=== PATIENT | female | born 1990 | race American Indian/Alaskan Native ===

== ENCOUNTER 2018-11-26 05:37 | Inpatient (IN) | payer MEDICAID ==
[2018-11-26] MEDS: Lactated Ringers 1,000 ML IV SCH ×6 (06:30→23:00)
[2018-11-26] MEDS ORDERED: Sodium Chloride 0.9% 10 ML Syringe FLUSH PRN (06:42)
[2018-11-26] MEDS ORDERED: Tranexamic Acid 1,000 MG in Sodium Chloride 0.9% 100 ML IV PRN ×2 (06:42→08:43)
[2018-11-26] MEDS ORDERED: Citric Acid/Sodium Citrate Solution 30 ML Cup PO ONE (06:42)
[2018-11-26] MEDS ORDERED: Lactated Ringers 1,000 ML IV SCH (06:45)
[2018-11-26] MEDS ORDERED: ceFAZolin 2 GM in Premix Bag 1 BAG IV ONE (07:06)
[2018-11-26] MEDS ORDERED: Oxytocin/Normal Saline 60 UNIT/1,000 ML BAG ONE (07:15)
[2018-11-26] MEDS ORDERED: Oxytocin/Normal Saline 30 UNIT/500 ML BAG IV SCH (08:30)
[2018-11-26] MEDS ORDERED: Acetaminophen/oxyCODONE 325-5 MG Tab PO PRN (08:43)
[2018-11-26] MEDS ORDERED: diphenhydrAMINE 50 MG/ML SDV IVPUSH PRN (08:43)
[2018-11-26] MEDS ORDERED: Methylergonovine 0.2 MG/1 ML Amp IM PRN (08:43)
[2018-11-26] MEDS ORDERED: ePHEDrine 50 MG/ML SDV IVPUSH PRN (08:43)
[2018-11-26] MEDS ORDERED: Misoprostol 400 MCG (4 X 100 MCG TAB) RECTAL PRN (08:43)
[2018-11-26] MEDS ORDERED: Naloxone 2 MG/2 ML Syringe IVPUSH PRN (08:43)
[2018-11-26] MEDS ORDERED: Carboprost Tromethamine 250 MCG/1 ML Amp IM ONE (08:43)
[2018-11-26] MEDS ORDERED: Ondansetron 4 MG/2 ML SDV IV PRN (08:43)
[2018-11-26] MEDS ORDERED: Acetaminophen 325 MG Tab PO PRN (08:43)
--- NOTE | 2018-11-26 11:24 | OR ---
DATE: 11/26/2018 PREOPERATIVE DIAGNOSES: 1. Intrauterine at 39 and 2/7 weeks confirmed by 9-week ultrasound. 2. History of 2.5-minute shoulder dystocia with previous . 3. History of clavicle fracture with other delivery. 4. Request for primary low transverse section due to the above. 5. Impaired glucose tolerance. 6. History of loop electrosurgical excision procedure. 7. History of herpes, on prophylaxis. 8. 3, P2-0-0-2. POSTOPERATIVE DIAGNOSES: 1. Intrauterine at 39 and 2/7 weeks confirmed by 9-week ultrasound, delivered. 2. History of 2.5-minute shoulder dystocia with previous . 3. History of clavicle fracture with other delivery. 4. Request for primary low transverse section due to the above. 5. Impaired glucose tolerance. 6. History of loop electrosurgical excision procedure. 7. History of herpes on prophylaxis. 8. 3, P2-0-0-2. PROCEDURES PERFORMED: NST followed by primary low transverse with 2- layer uterine closure. GEODETIC SURVEYOR TECHNOLOGIST: 1. Carmina Bains MD. 2. Kobe Degroot, MS-III. 3. Radha Walton, PGY-III . ANESTHESIA: Spinal. ESTIMATED BLOOD LOSS: 700 mL. INTRAVENOUS FLUIDS: 1100 mL of lactated Ringer's and 250 mL of Pitocin. URINE OUTPUT: 60 mL and clear yellow. START: 8:12 UTERINE INCISION: 8:15 DELIVERY: 8:16 STOP: 8:33 FINDING: Male, scores 8 and 9, weight pending. DESCRIPTION OF PROCEDURE IN DETAIL: After proper consent was obtained, the patient was brought to the operating room where spinal anesthetic was administered. Castro was placed in preop under sterile conditions. Abdomen was prepped and draped in normal sterile fashion with the patient placed in supine position with left lateral tilt. A skin incision was then made over lower abdomen in transverse Pfannenstiel-type fashion. This was carried down the fascia and scored in midline. Subcutaneous tissue was raked laterally with Meadows retractor, and fascial incision was extended in lateral fashion using curved Price's. Vee clamps x2 used to grasp the superior aspect of the fascia, and rectus muscles were dissected from the fascia using sharp and blunt technique. In a similar fashion, Vee clamps x2 used to grasp the inferior portion of the incision, and rectus and pyramidalis muscles were dissected using sharp using blunt technique. Rectus muscles were then in midline with blunt technique. Abdominal cavity was entered in blunt technique. Incision was extended superiorly and inferiorly with blunt technique. Kobe O large retractor was then introduced and used. Vesicouterine peritoneum was identified and incised in transverse fashion with Metzenbaum scissors. Bladder flap was made digitally. A curvilinear incision was made on the lower uterine segment at 0812 hours. Uterus was entered sharply. Clear fluid returned. Uterine incision was then extended in transverse fashion using blunt technique. vertex was then delivered through the incision followed by rest of the infant with minimal difficulty. Mouth and nares were suctioned. Cord doubly clamped cut and was brought to team. Then, approximately 10 mL of cord blood was obtained for labs. Placenta was then delivered with gentle cord traction and fundal massage. Uterine cavity was cleared of all blood clots and debris with lap sponge. Cuevas clamps were used to grasp the uterine incision, and this was closed in a running, locked fashion, tied at lateral margins with 1-0 Vicryl. Second imbricating layer was then applied and tied at lateral margins with 1-0 Vicryl. First inspection of the uterine incision revealed hemostasis. Kobe O retractor was then removed, and paracolic gutters were then cleared of all blood clots or debris. Anterior cul-de-sac was then irrigated copiously, and all blood clots were removed. Second and final inspection of uterine incision and anterior cul-de-sac revealed hemostasis. Rectus muscles were then reapproximated in midline with [id number] stitch using 1-0 Vicryl. Subfascial tissue found to be hemostatic. Fascia was closed in a running fashion and tied at lateral margins with 0 looped PDS. Subcutaneous tissue was irrigated copiously. Hemostasis was reassured. Skin was reapproximated with medium ciera. Sterile Aquacel dressing was applied. Uterine fundus was firm and massaged at conclusion of the case -1 below the umbilicus. No immediate complications were noted. Sponge, lap, and needle counts were correct. The patient received 2 g of Ancef preoperatively, Pitocin per protocol, and will receive Toradol at the conclusion of case for pain control. Mother and infant are currently stable at the time of dictation. [facility] /[id number]
--- NOTE | 2018-11-26 11:33 | OBOUT ---
DATE: 11/26/2018 DATE AND TIME OF NST: Date: 11/26/2018. Time: 6:10 to 6:30. REASON FOR NST: 1. Intrauterine at 39 and 2/7 weeks confirmed with 9-week ultrasound. 2. History of 2.5-minute shoulder dystocia with previous delivery. 3. History of clavicle fracture with different delivery of with delivery. 4. Request for primary low transverse section. 5. Remote history of asthma. 6. History of herpes. 7. G3, P2-0-0-2. NST INTERPRETATION: During this time period, heart tone baseline is approximately 125 to 130 and there are at least two 15 x 15 beat per minute accelerations making this strip reactive. It is also noted to be reassuring. Tocometer reveals potential of 3 to 4 contractions, minimally felt by the patient. ASSESSMENT: 1. Nonstress test, reactive and reassuring. 2. Tocometer with contractions. PLAN: Please see admit history and physical done through [facility]. Records were called for, reviewed, and summarized through this as well and updated. Blood pressure today 121/75 and heart rate 89. The patient is afebrile. Otherwise, please see epic notes for further details. We will proceed to OR as soon as crew is ready and available. [facility] /[id number]
[2018-11-26] MEDS ORDERED: Oxytocin/Normal Saline 30 UNIT/500 ML BAG IV ONE (13:03)
[2018-11-26] MEDS ORDERED: Lactated Ringers 1,000 ML IV ONE (13:08)
[2018-11-26] MEDS ORDERED: Dexamethasone 4 MG/ML SDV IV ONE (13:08)
[2018-11-26] MEDS ORDERED: Ondansetron 4 MG/2 ML SDV IV ONE (13:08)
[2018-11-26] MEDS ORDERED: ePHEDrine 50 MG/ML SDV IV ONE (13:08)
[2018-11-26] MEDS ORDERED: Morphine PF 1 MG/ML Amp ONE (13:08)
[2018-11-26] MEDS: Docusate Sodium 100 MG Cap PO PRN ×2 (13:08→20:04)
[2018-11-26] MEDS ORDERED: Ketorolac 30 MG/ML SDV IVPUSH ONE (13:08)
[2018-11-26] MEDS: Prenatal Multivitamin with Calcium/Folic Acid/Iron Tab PO SCH (13:09)
[2018-11-26] MEDS: Simethicone 80 MG Tab.Chew PO SCH ×3 (13:09→20:04)
[2018-11-26] MEDS: Ketorolac 30 MG/ML SDV IVPUSH SCH ×2 (14:05→20:04)
[2018-11-27] MEDS: Ketorolac 30 MG/ML SDV IVPUSH SCH (02:03)
--- NOTE | 2018-11-27 07:57 | PCM.PNPP ---
- General Info Date of Service: 11/27/18 ( ) Admission Dx/Problem (Free Text): primary section for history of traumatic delivery and prolonged shoulder dystocia Subjective Update: Yolanda is POD 1 s/p elective primary LTCS. She is doing well this morning. Pain is well controlled with narcotic oral pain medication. She is ambulating well. Urinating spontaneously. No BM yet. passing gas. Lochia is mild in degree. Denies headache, vision change, sob, calf pain. Legs are still a bit swollen. She is bottle feeding. Baby doing well. Functional Status: Reports: Pain Controlled, Tolerating Diet, Ambulating, Urinating - Patient Data Vital Signs - Most Recent: Last Vital Signs Temp 98.6 F 11/27/18 03:06 Pulse 74 11/27/18 03:06 Resp 16 11/27/18 03:06 BP 107/56 L 11/27/18 03:06 Pulse Ox 98 11/26/18 17:00 Weight - Most Recent: 238 lb I&O - Last 24 Hours: Intake & Output 11/26/18 11/27/18 11/27/18 22:59 06:59 14:59 Intake Total 500 800 Output Total 160 400 650 Balance 340 -400 150 Lab Results - Last 24 Hours: Laboratory Results - last 24 hr 11/27/18 Range/Units 06:20 WBC 8.4 (5.0-10.0) 10^3/uL RBC 2.82 L (4.2-5.4) 10^6/uL Hgb 8.9 L D (12.0-16.0) g/dL Hct 27.1 L (37.0-47.0) % MCV 96.1 (80-100) fL MCH 31.6 (27.0-34.0) pg MCHC 32.8 L (33.0-35.0) g/dL Plt Count 196 (150-450) 10^3/uL Med Orders - Current: Current Medications Acetaminophen (Tylenol) 650 mg PO Q6H PRN PRN Reason: mild pain or fever Diphenhydramine HCl (Benadryl) 25 mg IVPUSH Q6H PRN PRN Reason: Itching or Nausea Docusate Sodium (Colace) 100 mg PO Q12H PRN PRN Reason: Constipation Last Admin: 11/26/18 20:04 Dose: 100 mg Ephedrine Sulfate (Ephedrine Sulfate) 5 mg IVPUSH SEECOMMENT PRN PRN Reason: Other Tranexamic Acid 1,000 mg/ (Sodium Chloride) 110 mls @ 660 mls/hr IV ONETIME PRN PRN Reason: Bleeding Lactated Ringer's (Ringers, Lactated) 1,000 mls @ 125 mls/hr IV ASDIRECTED [facility] Last Infusion: 11/26/18 07:31 Dose: Infused Lactated Ringer's (Ringers, Lactated) 1,000 mls @ 500 mls/hr IV .BOLUS [facility] Last Admin: 11/26/18 06:00 Dose: 999 mls/hr Oxytocin/Sodium Chloride (Pitocin In Ns 30 Unit/500 Ml) 30 unit in 500 mls @ 2 mls/hr IV TITRATE [facility]; Protocol Last Titration: 11/26/18 13:00 Dose: 0 mls/hr Lactated Ringer's (Ringers, Lactated) 1,000 mls @ 125 mls/hr IV ASDIRECTED [facility] Last Admin: 11/26/18 23:00 Dose: 125 mls/hr Ibuprofen (Motrin) 800 mg PO Q8H PRN PRN Reason: mild pain or fever Methylergonovine Maleate (Methergine) 0.2 mg IM ONETIME PRN PRN Reason: Excessive Vaginal Bleeding Misoprostol (Cytotec) 800 mcg RECTAL ASDIRECTED PRN PRN Reason: Excessive bleeding Naloxone HCl (Narcan) 0.1 mg IVPUSH SEECOMMENT PRN PRN Reason: Respiratory Depression Ondansetron HCl (Zofran) 4 mg IV Q4H PRN PRN Reason: Nausea/Vomiting Oxycodone/Acetaminophen (Percocet 325-5 Mg) 1 tab PO Q4H PRN PRN Reason: Pain (moderate 4-6) Oxycodone/Acetaminophen (Percocet 325-5 Mg) 2 tab PO Q4H PRN PRN Reason: Pain (moderate 4-6) Prenat Multivit/Procurement Manager/Iron/Folic Ac ( Plus Iron) 1 each PO DAILY [facility] Last Admin: 11/26/18 13:09 Dose: Not Given Simethicone (Simethicone) 160 mg PO QID [facility] Last Admin: 11/26/18 20:04 Dose: 160 mg Sodium Chloride (Saline Flush) 10 ml FLUSH ASDIRECTED PRN PRN Reason: Keep Vein Open Discontinued Medications Carboprost Tromethamine (Hemabate Ds) 250 mcg IM ONETIME ONE Stop: 11/26/18 08:44 Last Admin: 11/26/18 14:08 Dose: Not Given Citric Acid/Sodium Citrate (Bicitra Solution) 30 ml PO ONETIME ONE Stop: 11/26/18 06:43 Last Admin: 11/26/18 07:43 Dose: 30 ml Dexamethasone (Dexamethasone) 8 mg IV .STK-MED ONE Stop: 11/26/18 13:09 Ephedrine Sulfate (Ephedrine Sulfate) 15 mg IV .STK-MED ONE Stop: 11/26/18 13:09 Cefazolin Sodium/Dextrose 2 gm (/ Premix) 50 mls @ 100 mls/hr IV ONETIME ONE Stop: 11/26/18 07:35 Last Admin: 11/26/18 07:51 Dose: 100 mls/hr Oxytocin/Sodium Chloride (Pitocin In Ns 30 Unit/500 Ml) Confirm Administered Dose 60 unit in 1,000 mls @ as directed .ROUTE .STK-MED ONE Stop: 11/26/18 07:16 Oxytocin/Sodium Chloride (Pitocin In Ns 30 Unit/500 Ml) 30 unit in 500 mls @ as directed IV .STK-MED ONE Stop: 11/26/18 13:04 Lactated Ringer's (Ringers, Lactated) 1,000 mls @ as directed IV .STK-MED ONE Stop: 11/26/18 13:09 Ketorolac Tromethamine (Toradol) 15 mg IVPUSH Q6H ONI Stop: 11/27/18 03:01 Last Admin: 11/27/18 02:03 Dose: 15 mg Ketorolac Tromethamine (Toradol) 30 mg IVPUSH .STK-MED ONE Stop: 11/26/18 13:09 Morphine Sulfate (Duramorph Pf) 0.2 mg .XX .STK-MED ONE Stop: 11/26/18 13:09 Ondansetron HCl (Zofran) 4 mg IV .STK-MED ONE Stop: 11/26/18 13:09 - Infant Interaction Disposition, : [place] at Bedside Infant Interaction: Holding Infant Feeding: Bottle Fed Infant - Recovery Exam Fundal Tone: Firm Fundal Level: 3 Fingerbreadths Below Umbilicus Fundal Placement: Midline Lochia Amount: Small Lochia Color: Rubra/Red Perineum Description: Intact, Minimal Bruising/Swelling Episiotomy/Laceration: None Bladder Status: Nonpalpable, Indwelling Catheter in Place Urinary Elimination: Indwelling Catheter - Exam General: Alert, Oriented Lungs: Clear to Auscultation, Normal Respiratory Effort. No: Rales, Wheezing Cardiovascular: Regular Rate, Regular Rhythm, No Murmurs GI/Abdominal Exam: Soft, Tender (appropriately). No: Guarding Extremities: Non-Tender, Pedal Edema (trace) Skin: Warm, Dry Wound/Incisions: Drainage (small amount of strikethrough, stable from this morning per nursing) Neurological: No New Focal Deficit Psy/Mental Status: Alert, Normal Affect, Normal Mood - Problem List & Annotations (1) delivery delivered SNOMED Code(s): 064358828 Code(s): O82 - ENCOUNTER FOR DELIVERY WITHOUT INDICATION Status: Acute Current Visit: Yes - Problem List Review Problem List Initiated/Reviewed/Updated: Yes - My Orders Last 24 Hours: My Active Orders 11/26/18 08:43 Communication Order [RC] PER UNIT ROUTINE Communication Order [RC] Per Unit Routine RT Incentive Spirometry [RC] Q2HWA Acetaminophen [Tylenol] 650 mg PO Q6H PRN Acetaminophen/oxyCODONE [Percocet 325-5 MG] 1 tab PO Q4H PRN Acetaminophen/oxyCODONE [Percocet 325-5 MG] 2 tab PO Q4H PRN Docusate Sodium [Colace] 100 mg PO Q12H PRN Methylergonovine [Methergine] 0.2 mg IM ONETIME PRN Naloxone [Narcan] 0.1 mg IVPUSH SEECOMMENT PRN Ondansetron [Zofran] 4 mg IV Q4H PRN diphenhydrAMINE [Benadryl] 25 mg IVPUSH Q6H PRN ePHEDrine [ePHEDrine sulfate] 5 mg IVPUSH SEECOMMENT PRN miSOPROStol [Cytotec] 800 mcg RECTAL ASDIRECTED PRN Antiembolic Hose [OM.PC] Per Unit Routine Assess Lochia [WOMSER] Per Unit Routine Assess Uterine Involution [WOMSER] Per Unit Routine Breast Pump [WOMSER] Per Unit Routine Sequential Compression Device [OM.PC] Per Unit Routine 11/26/18 08:44 Antiembolic Devices [RC] 08,20 Intake and Output [RC] Q2HR Notify Provider Intake and Out [RC] ASDIRECTED 11/26/18 08:45 Lactated Ringers [Ringers, Lactated] 1,000 ml IV ASDIRECTED 11/26/18 09:00 Vit with Ca/FA/Iron [ Plus Iron] 1 each PO DAILY 11/26/18 13:00 Simethicone 160 mg PO QID 11/27/18 11:00 Ibuprofen [Motrin] 800 mg PO Q8H PRN - Assessment Assessment:: 28 yo G3 now P3 POD1 s/p primary LTCS at 39 2/7 weeks Acute blood loss anemia- post op hgb 8.4, down from 11.2. asymptomatic - Plan Plan:: Doing well this morning. continue routine post op cares ambulate as tolerated general diet continue oral iron supplementation anticipate discharge pod3 staffed with Dr. Willson
[2018-11-27] MEDS: Docusate Sodium 100 MG Cap PO PRN ×2 (09:14→19:59)
[2018-11-27] MEDS: Prenatal Multivitamin with Calcium/Folic Acid/Iron Tab PO SCH (09:14)
[2018-11-27] MEDS: Simethicone 80 MG Tab.Chew PO SCH ×4 (09:15→19:59)
[2018-11-27] MEDS: Acetaminophen/oxyCODONE 325-5 MG Tab PO PRN ×4 (09:54→22:18)
[2018-11-27] MEDS: Ferrous Sulfate 325 MG Tab PO SCH (14:55)
[2018-11-27] MEDS: Ibuprofen 800 MG Tab PO PRN (19:59)
[2018-11-28] MEDS: Ibuprofen 800 MG Tab PO PRN ×3 (03:51→20:31)
[2018-11-28] MEDS: Acetaminophen/oxyCODONE 325-5 MG Tab PO PRN ×4 (03:51→21:35)
[2018-11-28] MEDS: Ferrous Sulfate 325 MG Tab PO SCH (07:55)
[2018-11-28] MEDS: Docusate Sodium 100 MG Cap PO PRN ×2 (08:00→20:31)
[2018-11-28] MEDS: Prenatal Multivitamin with Calcium/Folic Acid/Iron Tab PO SCH (08:00)
[2018-11-28] MEDS: Simethicone 80 MG Tab.Chew PO SCH ×4 (08:00→20:31)
--- NOTE | 2018-11-28 12:22 | PN ---
DATE: 11/28/2018 Postoperative day #2, status post primary low transverse with 2-layer uterine closure. SUBJECTIVE: The patient is tolerating p.o., ambulating, urinating, passing flatus. OBJECTIVE: Vital Signs: Temperature 97.6, heart rate 64, blood pressure 122/61, respiratory rate 16. Lungs: Clear to auscultation bilaterally. Heart: S1 and S2. Regular rate and rhythm. Pelvic: Firm uterus around the umbilicus. Aquacel dressing does have some shadowing in the midline with minimal extension from tracing. Extremities: SCD hose are on. No calf pain. ASSESSMENT AND PLAN: 1. Postoperative day #2, status post primary low transverse with 2- layer uterine closure done due to her history of 2.5-minute shoulder dystocia with 1 and the other with a clavicle fracture. 2. Anemia of acute blood loss. Hemoglobin dropped from 11.2 to 8.9. PLAN: As the patient is asymptomatic in regard to her anemia, iron has been started. We will continue to follow clinically and closely. Possible discharge tomorrow, discussed and Dr. Valderrama will be covering in my absence. [facility] /[id number]
[2018-11-29] MEDS: Acetaminophen/oxyCODONE 325-5 MG Tab PO PRN ×2 (02:47→07:52)
[2018-11-29] MEDS: Ibuprofen 800 MG Tab PO PRN (04:14)
[2018-11-29] MEDS: Ferrous Sulfate 325 MG Tab PO SCH (07:52)
[2018-11-29] MEDS: Docusate Sodium 100 MG Cap PO PRN (07:52)
[2018-11-29] MEDS: Simethicone 80 MG Tab.Chew PO SCH ×2 (07:54→08:55)
[2018-11-29] MEDS: Prenatal Multivitamin with Calcium/Folic Acid/Iron Tab PO SCH ×2 (07:54→08:55)
--- NOTE | 2018-11-29 13:54 | DISCH ---
ADMITTING DIAGNOSES: 1. Intrauterine at 39 weeks 2 days' gestation, confirmed by 9-week ultrasound. 2. History of 2.5 minutes shoulder dystocia with previous . 3. History of clavicle fracture with other delivery. 4. Request for primary low-transverse section due to above diagnoses. 5. Impaired glucose tolerance. 6. History of loop electrosurgical excision procedure. 7. History of herpes, on prophylaxis. 8. 3, para 2-0-0-2. DISCHARGE DIAGNOSES: 1. Intrauterine at 39 weeks 2 days' gestation, confirmed by 9-week ultrasound. 2. History of 2.5 minutes shoulder dystocia with previous . 3. History of clavicle fracture with other delivery. 4. Request for primary low-transverse section due to above diagnoses. 5. Impaired glucose tolerance. 6. History of loop electrosurgical excision procedure. 7. History of herpes, on prophylaxis. 8. 3, para 2-0-0-2. Now 3, para 3-0-0-3. BRIEF HISTORY: The patient is a 28-year-old G3, now P3 patient, who presented with the above listed diagnoses, who presented with at 39 weeks 2 days' gestation for elective primary low transverse section. Please see admission history and physical and operative report for more details. HOSPITAL COURSE: Good. Routine postoperative section recovery. The patient was tolerating general diet, ambulating, urinating, and passing flatus. Has not yet had a bowel movement. The patient has no concerns. There was minimal bleeding of serosanguineous fluid from the incision site. She has no complaints of pain, redness, or swelling from the area. DISCHARGE CONDITION: Good. DISCHARGE PHYSICAL EXAMINATION: Vital Signs: Temp 98.4, HR 71, BP 124/74, RR 16 breaths per minute. General: Alert, cooperative, in no acute distress. HEENT: Grossly normal. Pulmonary: Lungs are clear to auscultation bilaterally. Cardiovascular: Regular rate and rhythm. Trace edema present in extremities bilaterally. Abdomen: Soft, nontender, slightly distended. Uterine fundus palpated 2 cm below the umbilicus, firm, nontender. Extremities: Trace edema noted on ankles and wrists bilaterally. No calf tenderness. Neurologic: Grossly normal. LABORATORY DATA: Hematology: WBC 8.4, RBC 2.82, HGB 8.9, HCT 27.1, platelet count 196. DISCHARGE MEDICATIONS: 1. Percocet 325 one tablet every 4 hours p.r.n. for pain. 2. Ibuprofen 800 mg one tablet every 6 to 8 hours p.r.n. for pain. 3. vitamin with iron supplementation one tablet daily p.o. DISPOSITION: Home with family. FOLLOWUP: The patient is advised to return for followup on 12/01/2018, with Dr. Walton at 2:00 p.m. in the clinic. This is for both mother and baby. The baby is scheduled for followup on Saturday with Dr. Willson as well at 10:45 a.m. The patient was seen and evaluated today by myself and Dr. Cristian Valderrama. Discharge is under advisement of Dr. Cristian Valderrama. The patient was seen and evaluated by myself and the student. I agree with the assessment and plan. Cristian Valderrama MD, FACOG [facility] /[id number] MTDD
--- NOTE | 2018-12-01 09:16 | PN ---
DATE: 11/29/2018 SUBJECTIVE: The patient is postoperative day #3, status post primary low- transverse with two-layer uterine closure at 39 weeks 2 days' gestation. The patient reports no complaints overnight. She is tolerating activity, tolerating general diet, and urinating well. She has not had a bowel movement. She is taking stool softeners. She is passing flatus. Based on labs drawn on 11/27/2018, the patient had a hemoglobin of 8.9, making her anemic, and she was placed on iron. The patient is formula feeding her child. No other concerns. OBJECTIVE: Vital Signs: Temp 98.4 degrees Fahrenheit, HR 71 beats per minute, BP 124/74, RR 16 breaths per minute. General: Alert, cooperative, in no acute distress. HEENT: Grossly normal. Pulmonary: Lungs clear to auscultation bilaterally. Cardiovascular: Regular rate and rhythm. No murmurs noted. Abdomen: Bowel sounds normoactive, soft, nontender, and mildly distended. Genitourinary: Uterus palpated 2 cm below the umbilicus. Firm, nontender. Incision: Clean, dry, no erythema or edema noted. Dressing changed today. A half dollar sized serosanguineous saturation through incision bandage noted, which is unchanged from earlier. Extremities: Trace edema in hands and fingers. No calf tenderness to palpation. LABORATORY DATA: Recent lab results as of 11/27/2018. WBC 8.4, RBC 2.8, HGB 8.9, HCT 27.1, and platelet count 196. ASSESSMENT: 1. Postoperative day #3, status post primary low-transverse section with two-layer uterine closure done due to history of 2.5 minutes shoulder dystocia with one and the other with a clavicle fracture. 2. Anemia of acute blood loss. Hemoglobin 8.9, down from 11.2 prior to section. 3. Delivery of a term male infant, doing well. PLAN: 1. Continue routine postoperative cares. I advised to rest and ambulate as tolerated. 2. Discharge to home later today. 3. Iron supplementation 325 mg orally daily. The patient was seen and evaluated today by myself and Dr. Cristian Valderrama. Assessment and plan are under advisement of Dr. Valderrama. -Naya Bowen [facility] /[id number] PATTI
== END 2018-11-29 12:25 | disposition home or self-care (01) | DRG 787 ==
LOC: UNDOADMOB 05:37 → DL.MS 05:37 → DL.OB 05:37 → OBSVTOIN 08:16 → DL.MS 08:16
PROVIDERS: ADMIT Family Medicine; ATTEND Family Medicine
PROC: 10D00Z1 Extraction of Products of Conception, Low, Open Approach (ICD-10-PCS; principal; 2018-11-26)
PROC: 4A1HXCZ Monitoring of Products of Conception, Cardiac Rate, External Approach (ICD-10-PCS; 2018-11-26)
DX: O99.814 Abnormal glucose complicating childbirth (principal); D62 Acute posthemorrhagic anemia; Z3A.39 39 weeks gestation of pregnancy; Z37.0 Single live birth; O99.02 Anemia complicating childbirth
CPT/HCPCS: 36415; 85025; 85027; 86850; 86900; 86901; A9270-GY; J0690; J1100; J1885; J2274; J2405; J2590; J7120

== ENCOUNTER 2019-06-13 22:01 | Emergency (ER) | payer OTHER ==
[2019-06-13] MEDS ORDERED: Acetaminophen/HYDROcodone 325-10 MG Tab PO ONE (22:02)
[2019-06-13] MEDS ORDERED: Clindamycin HCl 150 MG Cap PO ONE (22:22)
[2019-06-13] MEDS ORDERED: Acetaminophen/HYDROcodone 325-10 MG Tab ONE (22:25)
--- NOTE | 2019-06-13 22:29 | EDM.PDOC ---
ED HPI GENERAL MEDICAL PROBLEM - General Chief Complaint: Skin Complaint Stated Complaint: BOIL/ POSSIBLE INFECTION Time Seen by Provider: 06/13/19 22:25 Source of Information: Reports: Patient History Limitations: Reports: No Limitations - History of Present Illness INITIAL COMMENTS - FREE TEXT/NARRATIVE: abscess few days, started draining yesterday. Right Groin Pain Score (Numeric/FACES): 3 - Related Data Allergies Allergy/AdvReac Type Severity Reaction Status Date / Time Egg Derived Allergy Stomach Verified 06/13/19 22:07 Upset Home Meds: Home Meds Acetaminophen [Tylenol] 2 tab PO Q4H PRN 07/22/18 [History] Past Medical History HEENT History: Reports: Sinusitis Cardiovascular History: Reports: None Respiratory History: Reports: None Gastrointestinal History: Reports: None Genitourinary History: Reports: None BROADCAST ENGINEER History: Reports: , Other (See Below) Other BROADCAST ENGINEER History: history of shoulder dystocia X2 Musculoskeletal History: Reports: None Neurological History: Reports: None Psychiatric History: Reports: None Endocrine/Metabolic History: Reports: None Hematologic History: Reports: Anemia Immunologic History: Reports: None Oncologic (Cancer) History: Reports: Other (See Below) Other Oncologic History: hx LEEP Dermatologic History: Reports: None - Infectious Disease History Infectious Disease History: Reports: Herpes - Past Surgical History Head Surgeries/Procedures: Reports: None Female Surgical History: Reports: Section, Cystoscopy, LEEP, Other ( See Below) Other Female Surgeries/Procedures: ASCUS HPV cervial Social & Family History - Family History Family Medical History: Noncontributory - Tobacco Use Smoking Status *Q: Current Every Day Smoker Years of Tobacco use: 1 Packs/Tins Daily: 0.1 Second Hand Smoke Exposure: Yes - Caffeine Use Caffeine Use: Reports: Coffee - Recreational Drug Use Recreational Drug Use: No ED ROS GENERAL - Review of Systems Review Of Systems: ROS reveals no pertinent complaints other than HPI. ED EXAM, SKIN/RASH Exam: See Below Exam Limited By: No Limitations General Appearance: Alert, WD/WN, Mild Distress, Moderate Distress, Other (pain) Ears: Hearing Grossly Normal Throat/Mouth: Normal Voice, No Airway Compromise Head: Atraumatic Neck: Non-Tender, Full Range of Motion Respiratory/Chest: No Respiratory Distress Cardiovascular: Regular Rate, Rhythm GI/Abdominal: Soft, Non-Tender Neurological: Alert, Oriented, Normal Cognition, Normal Gait, No Motor/Sensory Deficits Psychiatric: Tearful Skin: Warm, Dry, Normal Color Location, Skin: Groin Characteristics: Erythematous Associated features: Warmth, Tenderness, Swelling, Inflammation. No: Lymphangitis Lymphatic: No Adenopathy ED SKIN PROCEDURES - I&D Site: right groin Skin Prep: Chlorhexidine (Hibiciens) Local Anesthesia: Lidocaine: Other (spray) Area Incised With: 11 Blade Drainage: Purulent, Moderate Amount Probed to Break Up Loculations: No Packed With: None Sterile Dressinx4(s) Complications: No Course - Vital Signs Last Recorded V/S: Last Vital Signs Temp 36.1 C 06/13/19 22:04 Pulse 94 06/13/19 22:04 Resp 18 06/13/19 22:04 BP 134/81 06/13/19 22:04 Pulse Ox 99 06/13/19 22:04 - Orders/Labs/Meds Orders: Active Orders 24 hr Category Date Time Status CULTURE WOUND [RM] Stat Lab 06/13/19 22:22 Ordered Meds: Medications Discontinued Medications Generic Name Dose Route Start Last Admin Trade Name Freq PRN Reason Stop Dose Admin Clindamycin HCl 300 mg 06/13/19 22:22 Cleocin PO 06/13/19 22:23 ONETIME ONE Departure - Departure Time of Disposition: 22:27 Disposition: Home, Self-Care 01 Condition: Good Clinical Impression: Abscess - Discharge Information Instructions: Skin Abscess, [id number] Additional Instructions: 1) keep area clean and dry 2) wound check Saturday rx given; clindamycin 300mg qid x 40 vicodin 5/325mg tid prn x 12 - My Orders Last 24 Hours: My Active Orders 06/13/19 22:22 CULTURE WOUND [RM] Stat - Assessment/Plan Last 24 Hours: My Active Orders 06/13/19 22:22 CULTURE WOUND [RM] Stat
== END 2019-06-13 22:34 | disposition home or self-care (01) ==
LOC: DL.ED 22:01
DX: L02.214 Cutaneous abscess of groin (principal); F17.210 Nicotine dependence, cigarettes, uncomplicated; Z91.012 Allergy to eggs
CPT/HCPCS: 10060; 87070; 99283; A9270

== ENCOUNTER 2023-11-06 09:34 | Inpatient (IN) | payer OTHER, MEDICAID ==
[~2023-11-06 09:34] MED LIST: Acetaminophen 325 MG Tab PO PRN; Acetaminophen/oxyCODONE 325-5 MG Tab PO PRN; Carboprost Tromethamine 250 MCG/1 ML Amp IM PRN; Docusate Sodium 100 MG Cap PO PRN; Ibuprofen 800 MG Tab PO PRN; Methylergonovine 0.2 MG/1 ML Amp IM PRN; Misoprostol 400 MCG (4 X 100 MCG TAB) RECTAL PRN; Naloxone 2 MG/2 ML Syringe IVPUSH PRN; Ondansetron 4 MG/2 ML SDV IVPUSH PRN; Tranexamic Acid 1,000 MG in Sodium Chloride 0.9% 100 ML IV PRN; Witch Hazel Medicated Pads 100/Jar TOP PRN; diphenhydrAMINE 50 MG/ML SDV IVPUSH PRN; ePHEDrine 50 MG/ML SDV IVPUSH PRN
[2023-11-06 10:13] LABS: HEMATOCRIT 32.9 % (37.0-47.0); HEMOGLOBIN 10.6 g/dL (12.0-16.0); MEAN CORPUSCULAR HEMOGLOBIN 30.5 pg (27.0-34.0); MEAN CORPUSCULAR HGB CONC 32.2 g/dL (33.0-35.0); MEAN CORPUSCULAR VOLUME 94.8 fL (80-100); RED BLOOD CELL COUNT 3.47 10^6/uL (4.2-5.4); WHITE BLOOD CELL COUNT,WBC 6.1 10^3/uL (5.0-10.0)
[2023-11-06] MEDS: Lactated Ringers 1,000 ML IV SCH (10:25)
[2023-11-06] MEDS ORDERED: Oxytocin/Normal Saline 30 UNIT/500 ML BAG ONE (11:29)
[2023-11-06] MEDS: Oxytocin/Normal Saline 30 UNIT/500 ML BAG IV SCH (12:48)
[2023-11-06] MEDS ORDERED: Acetaminophen 325 MG Tab PO PRN (15:15)
[2023-11-06] MEDS ORDERED: diphenhydrAMINE 50 MG/ML SDV IVPUSH PRN (15:16)
[2023-11-06] MEDS ORDERED: Carboprost Tromethamine 250 MCG/1 ML Amp IM PRN (15:16)
[2023-11-06] MEDS ORDERED: Ibuprofen 800 MG Tab PO PRN ×2 (15:16→15:20)
[2023-11-06] MEDS ORDERED: ePHEDrine 50 MG/ML SDV IVPUSH PRN (15:17)
[2023-11-06] MEDS ORDERED: Ondansetron 4 MG/2 ML SDV IVPUSH PRN (15:18)
[2023-11-06] MEDS ORDERED: Methylergonovine 0.2 MG/1 ML Amp IM PRN (15:19)
[2023-11-06] MEDS ORDERED: Naloxone 2 MG/2 ML Syringe IVPUSH PRN (15:19)
[2023-11-06] MEDS ORDERED: Misoprostol 400 MCG (4 X 100 MCG TAB) RECTAL PRN (15:19)
[2023-11-06] MEDS ORDERED: Tranexamic Acid 1,000 MG in Sodium Chloride 0.9% 100 ML IV PRN (15:19)
[2023-11-06] MEDS ORDERED: Witch Hazel Medicated Pads 100/Jar TOP PRN (15:20)
[2023-11-06] MEDS: Simethicone 80 MG Tab.Chew PO SCH ×2 (17:10→20:58)
[2023-11-06] MEDS: Ketorolac 30 MG/ML SDV IVPUSH SCH (18:55)
[2023-11-06] MEDS: Docusate Sodium 100 MG Cap PO PRN (18:56)
[2023-11-06] MEDS: Ferrous Sulfate 325 MG Tab PO SCH (20:57)
[2023-11-06] MEDS: Prenatal Multivitamin with Calcium/Folic Acid/Iron Tab PO SCH (20:58)
[2023-11-07] MEDS: Ketorolac 30 MG/ML SDV IVPUSH SCH (06:50)
[2023-11-07] MEDS: Ferrous Sulfate 325 MG Tab PO SCH (08:03)
[2023-11-07] MEDS: Prenatal Multivitamin with Calcium/Folic Acid/Iron Tab PO SCH (08:05)
[2023-11-07] MEDS: Acetaminophen/oxyCODONE 325-5 MG Tab PO PRN (08:06)
[2023-11-07 08:14] LABS: HEMATOCRIT 30.8 % (37.0-47.0); HEMOGLOBIN 10.1 g/dL (12.0-16.0); MEAN CORPUSCULAR HEMOGLOBIN 31.6 pg (27.0-34.0); MEAN CORPUSCULAR HGB CONC 32.8 g/dL (33.0-35.0); MEAN CORPUSCULAR VOLUME 96.3 fL (80-100); RED BLOOD CELL COUNT 3.2 10^6/uL (4.2-5.4); WHITE BLOOD CELL COUNT,WBC 6.2 10^3/uL (5.0-10.0)
[2023-11-07] MEDS: ceFAZolin 2 GM Vial IVPUSH ONE (13:43)
[2023-11-07] MEDS: Ibuprofen 800 MG Tab PO PRN (20:10)
[2023-11-08] MEDS: Acetaminophen/oxyCODONE 325-5 MG Tab PO PRN (07:15)
[2023-11-08] MEDS ORDERED: ceFAZolin 2 GM Vial IV ONE (11:49)
[2023-11-08] MEDS ORDERED: LACTATED RINGERS IV ONE (11:49)
[2023-11-08] MEDS ORDERED: OXYTOCIN IV ONE (11:49)
== END 2023-11-08 11:50 | disposition home or self-care (01) | DRG 787 ==
LOC: DL.OB 09:34 → DL.MS 11-07 07:41
PROVIDERS: ADMIT Family Medicine; ATTEND Family Medicine
PROC: 10D00Z1 Extraction of Products of Conception, Low, Open Approach (ICD-10-PCS; principal; 2023-11-06 12:00)
DX: O34.211 Maternal care for low transverse scar from previous cesarean delivery (principal); O98.52 Other viral diseases complicating childbirth; O24.429 Gestational diabetes mellitus in childbirth, unspecified control; O99.824 Streptococcus B carrier state complicating childbirth; B00.9 Herpesviral infection, unspecified; O69.81X0 Labor and delivery complicated by cord around neck, without compression, not applicable or unspecified; O99.344 Other mental disorders complicating childbirth; F32.A Depression, unspecified; Z37.0 Single live birth; Z3A.39 39 weeks gestation of pregnancy
CPT/HCPCS: 01961; 36415; 59025; 59409; 82947; 85027; 86850; 86900; 86901; 94010; A9270-GY; J0690; J1885; J2590; J7120